=== PATIENT | male | born 1995 | race Hispanic/Latino ===

== ENCOUNTER 2022-06-22 | Emergency (ER) | payer SELFPAY ==
--- NOTE | ~2022-06-22 | CT_ITS ---
EXAMINATION: CT abdomen pelvis w con DATE: 06/22/2022 01:25 INDICATION: Right upper quadrant abdominal pain. TECHNIQUE: Computed tomography (CT) of the abdomen and pelvis was performed with 100 mL Omnipaque 350 intravenous contrast. Automated exposure control and iterative reconstruction technique were employe d. The dose-length product was 1005.09 mGy-cm. COMPARISON: CT abdomen and pelvis 07/22/16 FINDINGS: The visualized portions of the lung bases are clear without pneumonia or pleural effusion. The heart size is normal. No pericardial effusion. There is diffuse hepatic steatosis. There is a gal lstone in the gallbladder. The spleen, pancreas, adrenal glands, and kidneys are normal. There are no dilated loops of bowel. The appendix is normal. There are no pathologically enlarged lymph nodes. Th ere is no free intraperitoneal fluid. There is an umbilical hernia containing fat. There is mild thor acolumbar spondylosis. IMPRESSION: 1. Cholelithiasis. If there is clinical concern for acute cholecystitis, consider ultrasound. 2. Diffuse hepatic steatosis. Reviewed, dictated and finalized at location A. IMPRESSION: 1. Cholelithiasis. If there is clinical concern for acute cholecystitis, consid er ultrasound. 2. Diffuse hepatic steatosis.
[2022-06-22 00:09] VITALS: BP 142/108; PULSE 83; RESP 20; TEMP 36.1; O2SAT 100
[2022-06-22 00:31] LABS: Basophils Absolute Auto 0.1 K/mm3 (0.0-0.1); Basophils Percent Auto 0.4 % (0.2-1.2); Eosinophils Absolute Auto 0.1 K/mm3 (0-0.3); Eosinophils Percent Auto 0.4 % (0-4.4); Hematocrit 47.2 % (42.0-52.0); Hemoglobin 16.5 g/dL (14.0-18.0); Immature Granulocyte Absolute 0.04 K/mm3 (0.00-0.031); Immature Granulocyte Percent A 0.3 % (0-0.5); Lymphocytes Absolute Auto 4.01 K/mm3 (0.9-3.2); Lymphocytes Percent Auto 29.2 % (18.3-44.2); Mean Corpuscular Hemoglobin 30.8 pg (26-34); Mean Corpuscular Volume 88.2 fl (80-100); Mean Platelet Volume 8.9 fl (7.4-10.4); Monocytes Absolute Auto 0.7 K/mm3 (0.1-0.6); Monocytes Percent Auto 5.3 % (2.6-8.5); Neutrophils Absolute Auto 8.8 K/mm3 (1.3-6.7); Neutrophils Percent Auto 64.4 % (45.5-73.1); Platelet Count Result 290 k/mm3 (150-375); Red Blood Count 5.35 M/mm3 (4.6-6.20); White Blood Count 13.7 K/mm3 (4.5-10.0)
[2022-06-22 00:35] LABS: Alanine Aminotransferase 28 U/L (6-50); Albumin Level 5.2 g/dL (3.5-5.1); Alkaline Phosphatase 85 U/L (38-126); Anion Gap 16 mmol/L (8-16); Aspartate Amino Transferase 26 U/L (17-59); Bilirubin,Total 0.5 mg/dL (0.2-1.3); Blood Urea Nitrogen 10 mg/dL (9-20); Calcium 9.5 mg/dL (8.4-10.2); Carbon Dioxide 25 mmol/L (22-30); Chloride 99 mmol/L (98-107); Estimated CRCL calculation 139 ml/min; Estimated Glomerular Filt Rate > 60; Glucose 137 mg/dL (65-110); Lipase 138 U/L (23-300); Potassium 3.8 mmol/L (3.4-5.0); Sodium 140 mmol/L (137-145)
--- NOTE | 2022-06-22 00:40 | ECG_ITS ---
Measurements Intervals [place] Rate: 71 P: 21 ND: 167 QRS: 5 QRSD: 101 T: 25 QT: 364 QTc: 397 Interpretive Statements SINUS RHYTHM NONSPECIFIC ST ELEVATION IN DIFFUSE LEADS BASELINE ARTIFACT- I, III, AVL, AVF, V3 BORDERLINE ECG NO PREVIOUS ECG AVAILABLE FOR COMPARISON Electronically Signed On 06-22-2022 6:43:15 CDT by Anuel Balderrama D.O.
--- NOTE | 2022-06-22 00:45 | ED.ABDPAIN ---
HPI - Abdominal Pain General Chief Complaint: Abdominal Pain <KAPIL Mcleod Last Filed: 06/22/22 03:07> Stated Complaint: ABD pain <KAPIL Mcleod Last Filed: 06/22/22 03:07> Time Seen by Provider: 06/22/22 00:39 <KAPIL Mcleod Last Filed: 06/22/22 03:07> Source: patient <KAPIL Mcleod Last Filed: 06/22/22 03:07> Mode of arrival: ambulatory <KAPIL Mcleod Last Filed: 06/22/22 03:07> Limitations: no limitations <KAPIL Mcleod Last Filed: 06/22/22 03:07> History of Present Illness HPI narrative: This is a 26-year-old male that presents to the emergency department for right upper quadrant abdominal pain noted since last night. Reports the pain is sharp and burning in nature. He has taken several pfsp-klw-ijrvrjp gas medications with little relief. He had a cheeseburger prior to the pain starting. It is associated with some nausea and vomiting. Denies fever or diarrhea. <KAPIL Mcleod Last Filed: 06/22/22 03:07> Related Data Allergies/Adverse Reactions: Allergies Allergy/AdvReac Type Severity Reaction Status Date / Time No Known Allergies Allergy Verified 06/22/22 00:12 <KAPIL Mcleod Last Filed: 06/22/22 03:07> Review of Systems Review of Systems: CONSTITUTIONAL: Denies fever GASTROINTESTINAL: Report abdominal pain, nausea, vomiting. Denies diarrhea. GENITOURINARY: Denies dysuria or hematuria. <KAPIL Mcleod Last Filed: 06/22/22 03:07> All systems reviewed & are unremarkable except as noted in HPI and below <KAPIL Mcleod Last Filed: 06/22/22 03:07> [facility] Past Medical History Medical History: Medical History (Updated 06/23/22 @ 00:00 by Background Daemon) No active medical problems <KAPIL Mcleod Last Filed: 06/22/22 03:07> Social History Social History: Social History (Updated 06/22/22 @ 00:46 by Cecilia Willoughby PA-C) Alcohol intake: current Substance use: never <Cecilia Willoughby PA-C - Last Filed: 06/22/22 03:07> Exam Narrative: GENERAL: Well-appearing, well-nourished, and in mild acute distress due to pain. HEAD: Normocephalic, atraumatic. EYES: EOMI. CHEST: Clear to auscultation. No respiratory distress. No wheezes rales or rhonchi HEART: Regular rate and rhythm. No murmur heard. Normal peripheral pulses. ABDOMEN: Soft, nondistended, normal active bowel sounds. Tender to palpation in the right upper quadrant, without guarding. No CVA tenderness EXTREMITIES: Normal range of motion. No edema. SKIN: Warm, dry, no rash. NEURO: No focal deficits. Alert and oriented x3. PSYCH: Normal mood and affect <Cecilia Willoughby PA-C - Last Filed: 06/22/22 03:07> Course PART TIME/PA Physician Supervision I discussed this patient with SARMAD Willoughby. I agree with the assessment and plan as documented. <Irving Marquez MD - Last Filed: 06/23/22 03:09> Consultations Consultation #1: Spoke with Dr. Barker about patient and work-up. Patient will be given instructions on a low-fat diet and pain medication as needed. Will be started on oral antibiotic for associated leukocytosis. He is to follow-up in clinic. <Cecilia Willoughby PA-C - Last Filed: 06/22/22 03:07> Date: 06/22/22 <Cecilia Willoughby PA-C - Last Filed: 06/22/22 03:07> Time: 03:07 <Cecilia Willoughby PA-C - Last Filed: 06/22/22 03:07> Vital Signs Vital signs: Vital Signs Temperature 97 F L 06/22/22 00:09 Pulse Rate 83 06/22/22 00:09 Respiratory Rate 20 06/22/22 00:09 Blood Pressure 142/108 H 06/22/22 00:09 Pulse Oximetry 100 06/22/22 00:09 Oxygen Delivery Room Air 06/22/22 00:09 Temperature 97 F L 06/22/22 00:09 Pulse Rate 58 L 06/22/22 03:17 Respiratory Rate 19 06/22/22 03:17 Blood Pressure 142/88 H 06/22/22 03:17 Pulse Oximetry 98 06/22/22 03:17 Oxygen Delivery Room Air 06/22/22 00:09 <Cecilia Willoughby PA-C - [place]
[2022-06-22 00:48] LABS: Appearance Urine Clear (Clear); Bilirubin Urine Negative (Negative); Blood Urine Negative (Negative); Glucose Urine UA Negative (Negative); Ketones Urine Negative (Negative); Leukocyte Esterase Ur Negative LEU/UL (Negative); Nitrate Urine Negative (Negative); Protein Urine Negative (Negative); Specific Grav Ur 1.025 (1.001-1.035); Urobilinogen Urine 0.2 mg/dL (<2.0); pH Urine 6.5 (5.0-9.0)
[2022-06-22 00:54] LABS: Add Urine Microscopic? NO; Color Urine Light Yellow (Yellow)
[2022-06-22] MEDS: PANTOPRAZOLE SODIUM IV 40 MG VIAL IV PUSH (00:55)
[2022-06-22] MEDS: MORPHINE SULFATE (*CRX) 4 MG/ML INJ IV PUSH (00:56)
[2022-06-22] MEDS: ONDANSETRON INJ 4 MG/2 ML VIAL IV PUSH (00:56)
[2022-06-22 01:55] VITALS: BP 164/109; PULSE 68; RESP 22; O2SAT 97
[2022-06-22 02:02] VITALS: BP 150/99; PULSE 63; RESP 23; O2SAT 97
[2022-06-22] MEDS: KETOROLAC 30 MG/ML VIAL (*BKC) IV PUSH (02:14)
[2022-06-22 03:17] VITALS: BP 142/88; PULSE 58; RESP 19; O2SAT 98
== END 2022-06-22 03:24 | disposition home or self-care (01) ==
PROVIDERS: Physician Assistant; Emergency Provider Preventive Medicine Aerospace Medicine
DX: K80.20 Calculus of gallbladder without cholecystitis without obstruction (principal); K76.0 Fatty (change of) liver, not elsewhere classified; R94.31 Abnormal electrocardiogram [ECG] [EKG]
CPT/HCPCS: 36415; 74177; 80053; 81003; 83690; 85025; 93005; 96365; 96375; 99284; C9113; J0131; J1885; J2270; J2405; Q9967

== ENCOUNTER 2023-10-04 13:39 | Emergency (ER) | payer SELFPAY ==
--- NOTE | ~2023-10-04 | XR_ITS ---
EXAMINATION: XR chest 1V portable INDICATION: Back pain TECHNIQUE: Portable AP chest at 1416 hours COMPARISON: None available FINDINGS: There are minimal central interstitial and airspace opacities of the lungs. No pleural effu tomas or pneumothorax. The cardiomediastinal silhouette is normal. IMPRESSION: 1. Mild central interstitial and airspace opacities of the lungs which could reflect pneumonia and/or pulmonary edema. Reviewed, dictated and finalized at location B. RVISOR BURLING AND JOINING IMPRESSION: 1. Mild central interstitial and airspace opacities of the lungs which could re flect pneumonia and/or pulmonary edema.
[2023-10-04 13:50] VITALS: BP 140/66; PULSE 69; RESP 16; TEMP 36.4; O2SAT 99
--- NOTE | 2023-10-04 14:06 | ED.GENADULT ---
HPI - General Adult General Chief complaint: Unspecified Stated complaint: upper back issue Time Seen by Provider: 10/04/23 13:51 History of Present Illness HPI narrative: 28-year-old male present to the emergency department for evaluation of right scapular pain. Patient states he works as a cook and has been having increased pain of his right shoulder while working. Patient states he began having the pain on Monday and has been taking wulg-tdj-dyobdoi pain medications without significant improvement. Patient has taken Tylenol Advil and icy Hot but still has worsening symptoms. Patient denies any specific incident of injury other than possible overuse injury. Patient denies any falls patient denies any fevers. Related Data Allergies Allergy/AdvReac Type Severity Reaction Status Date / Time No Known Allergies Allergy Verified 06/28/22 11:31 Review of Systems Review of Systems: All systems reviewed & are unremarkable except as noted in HPI and below PMFSH Past Medical History Medical History No active medical problems Social History Social History (Updated 06/28/22 @ 11:35 by Zoe Steinre) Smoking status: Former smoker Alcohol intake: current Substance use: never Exam Narrative: APPEARANCE: Well appearing, no pain, no distress, well-nourished. HEAD: normocephalic, atraumatic. EYES: PERRLA/EOMI, conjunctivae clear. NOSE: Normal no drainage EARS:TMS clear with good light reflex. THROAT: Pharynx clear, no exudate. NECK: Supple. No adenopathy, no masses. RESPIRATORY: Airway patent, respirations nonlabored. Clear to auscultation bilaterally, no rales, rhonchi, wheezing. CARDIOVASCULAR: Regular rate and rhythm without murmurs rubs or gallops. ABDOMINAL: Soft, nontender, nondistended, normal bowel sounds MUSCULOSKELETAL: Reproducible posterior periscapular muscular tenderness to palpation. No midline tenderness to palpation NEURO: Alert. Cranial nerves II through XII intact. Grossly intact SKIN: Warm, dry. Normal Color Course Course Emergency Course: 28-year-old male presenting to ED for evaluation right muscular back pain. Chest x-ray shows no acute fracture dislocation. Patient did feel improved with treatment. Patient was advised to continue taking the Aleve as scheduled and patient was provided Flexeril and a short course of Epes for additional pain control. Patient was advised to limit repetitive use of the right shoulder and to have close follow-up with his primary care physician. Vital Signs Vital signs: Vital Signs Temperature 97.5 F L 10/04/23 13:50 Pulse Rate 69 10/04/23 13:50 Respiratory Rate 16 10/04/23 13:50 Blood Pressure 140/66 10/04/23 13:50 Pulse Oximetry 99 10/04/23 13:50 Oxygen Delivery Room Air 10/04/23 13:50 Temperature 97.8 F 10/04/23 14:49 Pulse Rate 76 10/04/23 14:49 Respiratory Rate 16 10/04/23 14:49 Blood Pressure 130/70 10/04/23 14:49 Pulse Oximetry 100 10/04/23 14:49 Oxygen Delivery Room Air 10/04/23 13:50 Medical Decision Making Differential Diagnosis Differential Diagnosis: Shoulder injury, muscular strain, pneumonia, rib fracture, pneumothorax Vital Signs Vital Signs: Vital Signs Temperature 97.5 F L 10/04/23 13:50 Pulse Rate 69 10/04/23 13:50 Respiratory Rate 16 10/04/23 13:50 Blood Pressure 140/66 10/04/23 13:50 Pulse Oximetry 99 10/04/23 13:50 Oxygen Delivery Room Air 10/04/23 13:50 Temperature 97.8 F 10/04/23 14:49 Pulse Rate 76 10/04/23 14:49 Respiratory Rate 16 10/04/23 14:49 Blood Pressure 130/70 10/04/23 14:49 Pulse Oximetry 100 10/04/23 14:49 Oxygen Delivery Room Air 10/04/23 13:50 Discharge Plan Discharge Clinical Impression: Back pain without radiation Patient Disposition: Home, Self-Care Condition: Stable Instructions: Antibiotic Form, Back Pain (ED) Additional Instructions
[2023-10-04] MEDS: HYDROcodone/acetaminophen (*CRX) 5-325 MG TABLET 1 TAB PO (14:19)
[2023-10-04] MEDS: CYCLOBENZAPRINE HCL 10 MG TABLET PO (14:20)
[2023-10-04] MEDS: KETOROLAC 30 MG/ML VIAL (*BKC) IM (14:20)
[2023-10-04 14:49] VITALS: BP 130/70; PULSE 76; RESP 16; TEMP 36.6; O2SAT 100
== END 2023-10-04 14:55 | disposition home or self-care (01) ==
PROVIDERS: Emergency Provider Emergency Medicine
DX: M25.511 Pain in right shoulder (principal); Z87.891 Personal history of nicotine dependence; R91.8 Other nonspecific abnormal finding of lung field
CPT/HCPCS: 71045; 96372; 99283; A9270; J1885

== ENCOUNTER 2023-10-18 21:25 | Observation (INO) | payer SELFPAY ==
--- NOTE | ~2023-10-18 | XR_ITS ---
EXAMINATION: XR chest 2V DATE: 10/18/2023 22:13 INDICATION: Chest pain. TECHNIQUE: Frontal and lateral views of the chest were obtained. COMPARISON: CT abdomen and pelvis 06/22/2022, chest single view 10/04/2023 FINDINGS: There is no pneumonia, pleural effusion, or pneumothorax. The heart size is normal. IMPRESSION: 1. No acute cardiopulmonary disease. Reviewed, dictated and finalized at location E. TINNER
--- NOTE | ~2023-10-18 | CT_ITS ---
CT of the Abdomen and Pelvis: Indication: Abdominal pain Technique: 2.5 mm axial scans were obtained through the abdomen and pelvis following intravenous adm inistration of 100 cc of Omnipaque 350. Dose reduction technique was used on this scan by utilizing a utomated exposure control and iterative reconstruction technique. The dose-length product (DLP) was 1 404.10 mGy-cm. COMPARISON: 06/22/2022 Findings: Scans through the lung bases are unremarkable. The liver, spleen, pancreas, gallbladder, adrenals and kidneys are within normal limits. No evidence of aortic aneurysm. No lymphadenopathy. No bowel obstruction or bowel wall thickening. There is no evidence to suggest acute appendicitis. Images through the pelvis were performed. Urinary bladder unremarkable. Prostate gland and seminal ve sicles are unremarkable. No ascites. Impression: No significant abnormalities seen. Reviewed, dictated and finalized at [facility]. INE BOOKKEEPER Impression: No significant abnormalities seen.
--- NOTE | ~2023-10-18 | NM_ITS ---
EXAMINATION: NM hepatobiliary w pharm DATE: 10/19/2023 12:44 INDICATION: Intractable right upper quadrant abdominal pain COMPARISON: CT dated 10/18/2023 TECHNIQUE: 5.3 mCi Tc-99m mebrofenin (Choletec) was administered intravenously. Scintigraphic images of the abdomen were obtained for one hour. 2 mg morphine was administered by slow intravenous infusi on, and imaging was continued for 30 minutes. FINDINGS: There is normal clearance of radiotracer from the blood pool. There is homogeneous tracer uptake by t he liver. Activity progresses to the common bile duct to the small bowel with initial duodenal activ ity evident at 35 minutes. There is progressive accumulation of activity in the bowels throughout the remainder of the study. Following morphine administration there is some accumulation of activity mandi ng the common bile duct and at the sunita hepatis. There is however no evident gallbladder activity. IMPRESSION: 1. No evident accumulation of gallbladder activity either during the initial hour of imaging or in t he calf or following morphine administration. This would be consistent with cystic duct obstruction a nd acute cholecystitis. Reviewed, dictated and finalized at location A. CTOR OF FOOD AND NUTRITION IMPRESSION: 1. No evident accumulation of gallbladder activity either during the initial h our of imaging or in the calf or following morphine administration. This would be consistent with cystic duct obstruction and acute cholecystitis.
--- NOTE | ~2023-10-18 | US_ITS ---
EXAMINATION: US abdomen limited DATE: 10/19/2023 11:08 INDICATION: Right upper quadrant abdominal pain TECHNIQUE: Multiple grayscale and Doppler ultrasound images of the abdomen were obtained. COMPARISON: CT dated 10/18/2023 FINDINGS: The visualized proximal to mid inferior vena cava is normal. The pancreatic head and body are normal in appearance. The pancreatic tail is not visualized. Liver has normal echogenicity and contour, wit h a smooth surface. No liver lesion identified. No intrahepatic biliary duct dilation suspected. Port al venous flow was seen in the hepatopetal, normal direction and has normal Doppler waveform. The gal lbladder is normal in appearance. There is no cholelithiasis. The common bile duct measures 3 mm, wh ich is normal. Sonographic Hodgson sign was reported as negative by the machinist wood.Visualized portion of the right kidney demonstrates normal contour and echogenicity with no hydronephrosis. IMPRESSION: 1. Normal right upper quadrant ultrasound. Reviewed, dictated and finalized at location A. DIGITAL AD SALES
[2023-10-18 21:27] VITALS: BP 156/112; PULSE 71; RESP 20; TEMP 35.7; O2SAT 100
--- NOTE | 2023-10-18 21:38 | ECG_ITS ---
Measurements Intervals [place] Rate: 60 P: 34 ID: 146 QRS: 7 QRSD: 102 T: 27 QT: 370 QTc: 371 Interpretive Statements SINUS RHYTHM LOW QRS VOLTAGE IN PRECORDIAL LEADS BASELINE ARTIFACT- I, II, III, AVR, AVL BORDERLINE ECG COMPARED TO ECG 06/22/2022 00:54:38 NO SIGNIFICANT CHANGES Electronically Signed On 10-19-2023 6:49:06 SYSTEMS INTEGRATOR by Anuel Balderrama D.O.
[2023-10-18 21:55] LABS: Basophils Absolute Auto 0.1 K/mm3 (0.0-0.1); Basophils Percent Auto 0.8 % (0.2-1.2); Eosinophils Absolute Auto 0.1 K/mm3 (0-0.3); Eosinophils Percent Auto 1.4 % (0-4.4); Hematocrit 47.9 % (42.0-52.0); Hemoglobin 16.1 g/dL (14.0-18.0); Immature Granulocyte Absolute 0.04 K/mm3 (0.00-0.031); Immature Granulocyte Percent A 0.4 % (0-0.5); Lymphocytes Absolute Auto 3.01 K/mm3 (0.9-3.2); Lymphocytes Percent Auto 29.2 % (18.3-44.2); Mean Corpuscular HGB Conc 33.6 g/dl (32-36); Mean Corpuscular Hemoglobin 30.3 pg (26-34); Mean Corpuscular Volume 90.2 fl (80-100); Mean Platelet Volume 9.5 fl (7.4-10.4); Monocytes Absolute Auto 0.7 K/mm3 (0.1-0.6); Monocytes Percent Auto 7.2 % (2.6-8.5); Neutrophils Absolute Auto 6.3 K/mm3 (1.3-6.7); Platelet Count Result 264 k/mm3 (150-375); Red Blood Count 5.31 M/mm3 (4.6-6.20); White Blood Count 10.3 K/mm3 (4.5-10.0)
[2023-10-18 22:06] LABS: Alanine Aminotransferase 28 U/L (6-50); Albumin Level 4.6 g/dL (3.5-5.1); Alkaline Phosphatase 63 U/L (38-126); Anion Gap 12 mmol/L (8-16); Aspartate Amino Transferase 30 U/L (17-59); Bilirubin,Total 0.6 mg/dL (0.2-1.3); Blood Urea Nitrogen 14 mg/dL (9-20); Carbon Dioxide 26 mmol/L (22-30); Chloride 101 mmol/L (98-107); Estimated CRCL calculation 117 ml/min; Estimated Glomerular Filt Rate > 60; Glucose 99 mg/dL (65-110); Lipase 190 U/L (23-300); Potassium 4.1 mmol/L (3.4-5.0); Sodium 139 mmol/L (137-145)
[2023-10-18 22:07] LABS: INR 0.9; Prothrombin Time 12.8 Seconds (11.1-14.7)
[2023-10-18 22:08] VITALS: O2SAT 100
[2023-10-18 22:08] LABS: Partial Thromboplastin Time 29.3 SECONDS (22.3-36.8)
[2023-10-18 22:17] LABS: Troponin I < 0.012 ng/mL (0.000-0.034)
[2023-10-18] MEDS: MAG HYDROX/AL HYDROX/SIMETH 30 ML UDC PO (23:16)
[2023-10-18] MEDS: FAMOTIDINE 20 MG/2 ML VIAL IV PUSH (23:16)
[2023-10-18 23:19] VITALS: PULSE 72; O2SAT 99
[2023-10-18 23:30] VITALS: PULSE 67; O2SAT 100
--- NOTE | 2023-10-18 23:39 | ED.ABDPAIN ---
HPI - Abdominal Pain General Chief Complaint: Abdominal Pain Stated Complaint: abdominal pain Time Seen by Provider: 10/18/23 22:41 Source: patient Limitations: no limitations History of Present Illness HPI narrative: Patient is a 28-year-old male presents to the emergency department complaining of abdominal pain. Patient states the pain is in his right upper quadrant, feels like a tightness and a pressure-like sensation, started approximately 3 hours ago and has been constant since onset, feels similar to his history of pain like this in the past in which she had gallbladder disease in his will see his gallbladder all passing on an hourly however they usually was common and going and it does not usually constant like this, missed the pain radiate around to the right side of his back, he tried an oxycodone for the pain with only minimal relief. Patient admits to associated in his pain with fatty foods in the past. Patient denies melena, hematochezia, diarrhea, chest pain, shortness of breath, cough, fever, recent injuries, recent illness, dysuria, hematuria, urinary frequency, urinary urgency, history kidney stones, rash, numbness, weakness, sore throat, nasal congestion. Patient admits to some slight nausea and had 1 episode of nonbloody nonbilious emesis. Related Data Allergies Allergy/AdvReac Type Severity Reaction Status Date / Time No Known Allergies Allergy Verified 10/18/23 21:33 Review of Systems Review of Systems: A 10 system review of systems was completed on the patient and is negative except for what is stated in the HPI. Nursing and ancillary documentation was reviewed. [facility] Past Medical History Medical History No active medical problems Social History Social History (Updated 06/28/22 @ 11:35 by Zoe Steiner) Smoking status: Former smoker Alcohol intake: current Substance use: never Comments At time of signature, I have reviewed and agree with nursing past medical, surgical, social and family history unless otherwise noted. Please see the nursing chart for further information. There is no relevant family history pertinent to the presenting complaint. Exam Narrative: CONST: No acute distress. Well nourished. HENMT: Head is normocephalic and atraumatic. Moist mucous membranes. No posterior oropharynx erythema. EYES: No conjunctival icterus, injection, or pallor. PERRL. NECK: No meningeal signs. RESP: Able to speak in full sentences. Normal respiratory effort. CTAB. CARDIO: Regular rate. Regular rhythm. 2+ DP and radial pulses bilaterally. GI: Nondistended. Soft. mild tenderness palpation in the right upper quadrant. No rebound or guarding or rigidity. Positive Hodgson sign. No McBurney's point tenderness to palpation. No palpable masses or hernias. : No CVA tenderness to palpation. SKIN: No rashes or lesions noted on exposed skin. NEURO: Oriented x3. Moves all extremities. EXTREM/MSK/BACK: No pedal edema. PSYCH: Normal affect. Course Vital Signs Vital signs: Vital Signs Temperature 96.3 F L 10/18/23 21:27 Pulse Rate 71 10/18/23 21:27 Respiratory Rate 20 10/18/23 21:27 Blood Pressure 156/112 H 10/18/23 21:27 Pulse Oximetry 100 10/18/23 21:27 Oxygen Delivery Room Air 10/18/23 21:27 Temperature 96.3 F L 10/18/23 21:27 Pulse Rate 80 10/19/23 02:19 Respiratory Rate 17 10/19/23 02:19 Blood Pressure 158/111 H 10/19/23 02:19 Pulse Oximetry 99 10/19/23 02:19 Oxygen Delivery Room Air 10/18/23 22:08 MDM - Abdominal Pain MDM Narrative Medical decision making narrative: Patient presents with the above complaint. Initial vitals are remarkable for no significant abnormalities. Physical examination as noted above. Plan discussed: Laboratory analysis, chest x-ray, EKG, CT of the abdomen pelvis with contrast, 1 L bolus IV fluids normal saline for hydration, NPO, famotidine 20 m
[2023-10-18 23:45] VITALS: PULSE 69; RESP 14; O2SAT 100
[2023-10-19] VITALS (33 sets, daily range): BP systolic 132–178; BP diastolic 85–114; PULSE 63–92; RESP 13–20; TEMP 36.6–37.6; O2SAT 96–100; BMI 35.5
[2023-10-19] MEDS: SODIUM CHLORIDE 0.9% IV 1,000 ML 999 ML IV CONT (00:06)
[2023-10-19] MEDS: MORPHINE SULFATE (*CRX) 4 MG/ML INJ IV PUSH ×2 (00:12→05:19)
[2023-10-19] MEDS: ONDANSETRON INJ 4 MG/2 ML VIAL IV PUSH ×2 (00:15→09:51)
[2023-10-19] MEDS: MORPHINE SULFATE (*CRX) 4 MG/ML INJ 8 MG IV PUSH (02:14)
--- NOTE | 2023-10-19 06:01 | ADMGEN ---
This patient, Adrián Martin, was admitted to Medical Room 261-01. Patient/family oriented to hospital policies and general routines including ID bracelet, bed and alarms, visiting hours, pain management, procedures, bathroom and other care routines, personal items, smoking policy, room service/diet, and visiting hours. Information on how to activate the Rapid Response Team has been discussed. Patient/Family are encouraged to report perceived risks to care and to ask questions if they do not understand what they are told or what they should do.
[2023-10-19] MEDS: SODIUM CHLORIDE 0.9% IV 1,000 ML 125 ML IV CONT (06:25)
--- NOTE | 2023-10-19 09:41 | PM.CNGS ---
Assessment and Plan Assessment and plan (1) Abdominal pain, right upper quadrant: Code(s): R10.11 - Right upper quadrant pain Status: Acute Assessment and Plan: Patient presented with intractable RUQ abdominal pain. CT of the abdomen and pelvis showed a normal appearing gallbladder and labs were unremarkable. In review of his chart, he did have CT evidence of cholelithiasis in 2021. His exam, persistent RUQ pain, and presentation are suspicious for gallbladder disease. Agree with the RUQ US and HIDA scan to further evaluate. I discussed treatment options with the patient if his pain is related to his gallbladder. He has already tried dietary modifications for the past year and continues to have intermittent pain, therefore he would prefer to proceed with surgery. If there is evidence of acute calculous cholecystitis, then we could consider proceeding with a laparoscopic cholecystectomy under general anesthesia. We did go over the description of the procedure, risks, benefits, expected outcomes, and expected recovery in case he has surgery during this admission. We discussed the risks of a bile leak and bile duct injury, liver/bowel injury, bleeding, and infection. Also discussed the possibility of having to convert to an open procedure if necessary. All questions were answered and will await test results. He will remain NPO for his tests today. I have added additional options for pain control while they are holding narcotics for the HIDA scan. (2) Steatosis, liver: Code(s): K76.0 - Fatty (change of) liver, not elsewhere classified Status: Acute Assessment and Plan: Noted on imaging. Recommend lifestyle modifications and low fat diet. (3) Obesity (BMI 30-39.9): Code(s): E66.9 - Obesity, unspecified Status: Acute (4) Marijuana smoker: Code(s): F12.90 - Cannabis use, unspecified, uncomplicated Status: Acute Assessment and Plan: Encouraged cessation. Plan I have discussed the patient's case and plan of care with Dr. Staples. Thank you for allowing us to see the patient in consultation and we will continue to follow along with you. History of Present Illness Consult details Consult date: 10/19/23 Reason for consult: other (Intractable RUQ abdominal pain) Requesting physician: Wood Platt DO Narrative: This is a 28-year-old man who presented to the ER with complaints of RUQ abdominal pain. He reports having minor episodes of similar pain in the past with one episode prompting and ER visit in 2021. He was seen in the ER with a CT scan of the abdomen and pelvis that showed cholelithiasis and he was discharged home with improvement of his symptoms. He followed up with Dr. Barker in our office a week after the ER visit and decided to hold off on surgery until he got insurance. Since then, he has followed a fairly strict low fat diet. He has had a few mild episodes of RUQ abdominal pain that subside and seem to follow meals. Yesterday, he had a deli meat wrap with mayonnaise and a Frappuccino around 3:00 pm. He then developed RUQ and epigastric abdominal pain around 6:00 pm that was more severe than previous episodes of pain. His pain radiated around his right side to his right mid back and progressively worsened. He developed nausea and vomiting. He eventually presented to the ER last night for evaluation. Workup in the ER showed normal LFTs, normal lipase, and essentially normal WBC count. CT scan of the abdomen and pelvis showed no acute intraabdominal abnormality with a normal appearing gallbladder. Chest x-ray negative. Troponin negative. He was given aspirin 324 mg, Mylanta, and morphine in the ER but continued to have intractable abdominal pain and was admitted for further workup. RUQ abdominal ultrasound and HIDA scan have been ordered. Our service was consulted for surgical evaluation of RUQ abdominal pain. He is now seen on the medical floor. He has been receiving IV morphine nearly jaquelin
[2023-10-19] MEDS: KETOROLAC 30 MG/ML VIAL (*BKC) IV PUSH (09:52)
--- NOTE | 2023-10-19 10:55 | PM.IMHP ---
H&P: HPI History of Present Illness Date/Time: 10/19/23 10:55 Chief Complaint: right upper quadrant pain Narrative: This is a 28-year-old male with a insignificant past medical history that presented to the ED on 10/18/23 due to acute abdominal pain. Patient's pain was in the right upper quadrant and radiated to his back. Patient states that he had been seeing the hospital in 2021 and was told he had gallstones but did not undergo surgery at that time. This feels like similar pain to him. He had a subjective fever and nausea but no vomiting. Patient is a daily drinker of at least 4 beers a day as well as a daily vape and marijuana user. He also consumes caffeine daily. He is found have a white blood cell count of 10.3, LFTs within normal range and normal lipase. CT of the abdomen pelvis was unremarkable. According to the ED no patient had a bedside point of care ultrasound which physician interpreted as gallbladder sludge. He was admitted for further workup with a right upper quadrant ultrasound as well as a HIDA scan. General surgery consulted for their opinion. [facility] Past Medical History Medical History No active medical problems Surgical History Surgical History No pertinent past surgical history Family History Family History Mother Hypertension Diabetes mellitus Social History Social History Smoking status: Former smoker Alcohol intake: current Drinks per week: 20 Substance use: never Substance use type: marijuana Do You Feel Safe in your Home?: Yes Lack of Transportation: No Lack of Food: Never True Current Housing: I Have Housing Concerned About Future Housing: No Difficulty Paying Gas/Electric Bills: No Difficulty Paying for Meds: No Currently Unemployed: No Education: Don't Know Difficulty w/ Childcare or Family Care: No Spiritual care concerns: No Meds Home Medications and Allergies Home Medications Medication Instructions Recorded Confirmed Type cyclobenzaprine 10 mg tablet 10 mg PO BID PRN muscle spasm #14 10/04/23 10/19/23 Rx tabs hydrocodone 5 mg-acetaminophen 325 1 tablet PO Q12H PRN pain #10 tabs 10/04/23 10/19/23 Rx mg tablet Allergies Allergy/AdvReac Type Severity Reaction Status Date / Time No Known Allergies Allergy Verified 10/18/23 21:33 Vital Signs Vital Signs - 24 hr 10/18/23 21:27 10/18/23 22:08 10/18/23 23:19 Temperature 96.3 F L Pulse Rate 71 72 Respiratory Rate 20 Blood Pressure 156/112 H Pulse Oximetry 100 100 99 Oxygen Delivery Room Air Room Air 10/18/23 23:30 10/18/23 23:45 10/19/23 00:04 Temperature Pulse Rate 67 69 74 Respiratory Rate 14 18 Blood Pressure Pulse Oximetry 100 100 100 Oxygen Delivery 10/19/23 00:15 10/19/23 00:30 10/19/23 00:45 Temperature Pulse Rate 72 75 69 Respiratory Rate 17 Blood Pressure Pulse Oximetry 100 98 100 Oxygen Delivery 10/19/23 01:00 10/19/23 01:15 10/19/23 01:30 Temperature Pulse Rate 71 66 71 Respiratory Rate 19 13 Blood Pressure Pulse Oximetry 100 100 Oxygen Delivery 10/19/23 01:45 10/19/23 02:00 10/19/23 02:15 Temperature Pulse Rate 68 69 68 Respiratory Rate 16 16 Blood Pressure Pulse Oximetry 100 100 100 Oxygen Delivery 10/19/23 02:19 10/19/23 02:20 10/19/23 02:30 Temperature Pulse Rate 80 78 74 Respiratory Rate 17 13 Blood Pressure 158/111 H Pulse Oximetry 99 100 99 Oxygen Delivery 10/19/23 02:31 10/19/23 03:34 10/19/23 03:45 Temperature Pulse Rate 77 Respiratory Rate 20 Blood Pressure Pulse Oximetry 100 99 97 Oxygen Delivery 10/19/23 04:04 10/19/23 05:09 10/19/23 05:32 Temperature Pulse Rate 63 73 67 Respiratory R
[2023-10-19] MEDS: MORPHINE SULFATE (*CRX) 2 MG/ML INJ IV PUSH (12:15)
[2023-10-19] MEDS: LACTATED RINGERS 1,000 ML 30 ML IV CONT ×2 (14:30→16:33)
--- NOTE | 2023-10-19 15:01 | WPDHPUPDATE1 ---
History and Physical Update Update Date/Time: 10/19/23 15:01 History and Physical has been reviewed, including an updated exam of the patient. There are NO changes in the patient's condition. Risks, benefits, and alternatives have been discussed and questions answered. Patient agrees to proceed with procedure.
--- NOTE | 2023-10-19 15:17 | WPDANESEPPF ---
Anes - Initial Pre Proc Eval Procedure: Operation Date: 10/19/23 15:00 Proposed Procedures p Laparoscopic Cholecystectomy, Possible Open - Reji Staples DO Date/Time: 10/19/23 15:17 Surgeon: Loki Mccray MD Pre Op Diagnosis: Intractable RUQ Abdominal Pain Patient Data Age: 28 Gender: M Height: 1.68 m Weight: 99.79 kg Last Vital Signs Temp 37.2 C 10/19/23 14:44 Pulse 69 10/19/23 14:44 Resp 16 10/19/23 14:44 BP 151/98 H 10/19/23 14:44 Pulse Ox 99 10/19/23 14:44 O2 Del Method Room Air 10/19/23 14:44 Allergies Allergy/AdvReac Type Severity Reaction Status Date / Time No Known Allergies Allergy Verified 10/18/23 21:33 Home Medications Medication Instructions Recorded Confirmed Type cyclobenzaprine 10 mg tablet 10 mg PO BID PRN muscle spasm #14 10/04/23 10/19/23 Rx tabs hydrocodone 5 mg-acetaminophen 325 1 tablet PO Q12H PRN pain #10 tabs 10/04/23 10/19/23 Rx mg tablet Laboratory Tests 10/18/23 21:49 WBC 10.3 H K/mm3 (4.5-10.0) RBC 5.31 M/mm3 (4.6-6.20) Hgb 16.1 g/dL (14.0-18.0) Hct 47.9 % (42.0-52.0) MCV 90.2 fl (80-100) MCH 30.3 pg (26-34) MCHC 33.6 g/dl (32-36) RDW 13.0 % (11.5-14.5) Plt Count 264 k/mm3 (150-375) MPV 9.5 fl (7.4-10.4) Immature Gran % (Auto) 0.4 % (0-0.5) Neut % (Auto) 61.0 % (45.5-73.1) Lymph % (Auto) 29.2 % (18.3-44.2) [place] % (Auto) 7.2 % (2.6-8.5) Eos % (Auto) 1.4 % (0-4.4) Baso % (Auto) 0.8 % (0.2-1.2) Lymph # (Auto) 3.01 K/mm3 (0.9-3.2) [place] # (Auto) 0.7 H K/mm3 (0.1-0.6) Eos # (Auto) 0.1 K/mm3 (0-0.3) Baso # (Auto) 0.1 K/mm3 (0.0-0.1) Abs Immat Gran (auto) 0.04 H K/mm3 (0.00-0.031) Absolute Neuts (auto) 6.3 K/mm3 (1.3-6.7) Absolute Nucleated RBC 0.0 K/mm3 (0.0-0.012) Nucleated RBC % 0.0 % (0.0-0.2) PT 12.8 Seconds (11.1-14.7) INR 0.9 APTT 29.3 SECONDS (22.3-36.8) Sodium 139 mmol/L (137-145) Potassium 4.1 mmol/L (3.4-5.0) Chloride 101 mmol/L (98-107) Carbon Dioxide 26 mmol/L (22-30) Anion Gap 12 mmol/L (8-16) BUN 14 mg/dL (9-20) Creatinine 0.90 mg/dL (0.7-1.3) Estim Creat Clear Calc 117 ml/min Estimated GFR > 60 (59 - ) Glucose 99 mg/dL (65-110) Calcium 10.0 mg/dL (8.4-10.2) Total Bilirubin 0.6 mg/dL (0.2-1.3) AST 30 U/L (17-59) ALT 28 U/L (6-50) Alkaline Phosphatase 63 U/L (38-126) Troponin I < 0.012 ng/mL (0.000-0.034) Total Protein 8.0 g/dL (6.3-8.2) Albumin 4.6 g/dL (3.5-5.1) Lipase 190 U/L (23-300) Patient hx anesthesia problems: none Family hx anesthesia problems: none Results Review: All pre-operative results and documents have been reviewed as part of the pre-operative evaluation. [facility] Past Medical History Medical History (Updated 10/19/23 @ 15:18 by Adria Thomas MD) CCC (chronic calculous cholecystitis) Marijuana smoker Obesity (BMI 30-39.9) Surgical History Surgical History No pertinent past surgical history Family History Family History Mother Hypertension Diabetes mellitus Social History Social History Smoking status: Former smoker Alcohol intake: current Drinks per week: 20 Substance use: never Substance use type: marijuana Do You Feel Safe in your Home?: Yes Lack of Transportation: No Lack of Food: Never True Current Housing: I Have Housing Concerned About Future Housing: No Difficulty Paying Gas/Electric Bills: No Difficulty Paying for Meds: No Currently Unemployed: No Education: Don't Know Difficulty w/ Childcare or Family Care: No Spiritual care concerns: No Anes - Eval Final PreProcedure Day of Procedure
[2023-10-19] MEDS: ceFAZolin 2 GM/D5W 50 ML 2 GM/50 ML BAG IVPB (15:42)
--- NOTE | 2023-10-19 16:36 | W.PM.PROC2 ---
Procedure Note - Detailed Date of Procedure 10/19/23 Pre-op Diagnosis Acute cholecystitis Post-op Diagnosis Same (Acute calculous cholecystitis) Procedure Performed Laparoscopic Cholecystectomy Surgeon Reji Staples, DO Anesthesia General and Local (0.5% bupivacaine) Indications This is a 28-year-old man who presented to the emergency department last night with right upper quadrant pain that had been constant for several hours. He has had an episode like this a couple years ago and gallstones were identified at that time. He elected not to have surgery at that time. In the emergency department he was noted to have tenderness in the right upper quadrant and a slightly elevated white blood count at 10.3. CT abdomen and pelvis was normal. He was admitted for further workup and treatment. An ultrasound was normal as well but HIDA scan showed evidence of occluded cystic duct consistent with acute cholecystitis. Discussions were made with the patient about treatment options and decision was made to proceed with laparoscopic cholecystectomy, possible open. Findings Laparoscopic cholecystectomy was performed. The patient had evidence of acute cholecystitis with induration of the gallbladder wall and hyperemia. The cystic duct appeared normal in size. There was about a 1 cm gallstone at the neck of the gallbladder. The gallbladder was tense and distended and was aspirated with a laparoscopic aspirating needle. About 80 mL of cloudy bilious fluid was aspirated. The gallbladder was then removed and sent to the lab for pathology. Description of Procedure Procedure as well as risks, benefits, and alternatives were discussed with patient. Written consent was obtained and placed in chart prior to procedure. The patient was brought back to surgical suite. Patient was placed in supine position on operating table. Time-out was done to confirm patient and procedure. Patient was then intubated by the anesthesia department. Abdomen was prepped and draped in sterile fashion using chlorhexidine prep. 0.5% bupivacaine with epinephrine was infiltrated at each site of incision. A 5 millimeter incision was made near the umbilicus, and a 5 millimeter Optiview trocar was advanced through the abdominal layers under direct visualization. Once inside the abdominal cavity, carbon dioxide was insufflated to create a pneumoperitoneum. The camera was inserted and the abdomen was inspected. No immediate abnormalities were identified. The patient was placed in reverse Trendelenburg position and rotated slightly to the left. An 11 millimeter incision was made in the subxiphoid region, and an 11 millimeter trocar was inserted under direct visualization. Two 5 millimeter incisions were made in the right upper quadrant, and two 5 millimeter trocars were inserted under direct visualization. The gallbladder was identified and grasped at the fundus and retracted superiorly. It was then grasped at the infundibulum retracted laterally. Careful dissection around the neck of the gallbladder was performed using blunt dissection with a [place] grasper and hook electrocautery. The cystic duct was identified, and a window was created behind it. The cystic artery was also identified and a window was created behind it. The critical view of safety was identified, visualizing the cystic duct running directly into the neck of the gallbladder, and the cystic artery running directly into the wall of the gallbladder. A 5 millimeter clip front desk team member was then used to place 2 clips proximally and 1 clip distally on both the cystic duct and cystic artery. They were then both transected using endoscopic scissors. Once safely away from the sunita hepatitis, the gallbladder was dissected free from the liver bed using hook electrocautery. Hemostasis was achieved along the way. The gallbladder was removed completely and then removed through the subxiphoid port. The liver bed was then inspected. Hemostasis appe
[2023-10-19] MEDS: BUPIVACAINE/EPINEPHRINE 0.5% 50 ML VIAL 30 ML INFILTRATE (16:37)
[2023-10-19] MEDS: fentaNYL CITRATE INJ (*CRX) 100 MCG/2 ML VIAL IV PUSH (16:40)
[2023-10-19] MEDS: MIDAZOLAM HCL (*CRX) 2 MG/2 ML VIAL IV PUSH (16:45)
[2023-10-19] MEDS: LACTATED RINGERS 1,000 ML 100 ML IV CONT (18:45)
[2023-10-19] MEDS: hydrALAZINE HCL 20 MG/ML VIAL 10 MG IV PUSH (19:53)
[2023-10-19] MEDS: oxyCODONE HCL (*CRX) 5 MG TAB IR PO (22:37)
[2023-10-20 01:01] VITALS: BP 147/94; PULSE 89; RESP 14; TEMP 36.8; O2SAT 96
[2023-10-20] MEDS: MORPHINE SULFATE (*CRX) 4 MG/ML INJ IV PUSH ×2 (02:00→07:53)
[2023-10-20 04:55] VITALS: BP 143/97; PULSE 82; RESP 16; TEMP 36.8; O2SAT 98
[2023-10-20 04:56] LABS: Hematocrit 46.4 % (42.0-52.0); Hemoglobin 16.3 g/dL (14.0-18.0); Mean Corpuscular HGB Conc 35.1 g/dl (32-36); Mean Corpuscular Hemoglobin 31.1 pg (26-34); Mean Corpuscular Volume 88.5 fl (80-100); Mean Platelet Volume 9.3 fl (7.4-10.4); Platelet Count Result 252 k/mm3 (150-375); Red Blood Count 5.24 M/mm3 (4.6-6.20)
[2023-10-20 05:13] LABS: Alanine Aminotransferase 96 U/L (6-50); Albumin Level 4.2 g/dL (3.5-5.1); Alkaline Phosphatase 63 U/L (38-126); Anion Gap 12 mmol/L (8-16); Aspartate Amino Transferase 60 U/L (17-59); Bilirubin,Total 0.9 mg/dL (0.2-1.3); Blood Urea Nitrogen 7 mg/dL (9-20); Carbon Dioxide 22 mmol/L (22-30); Chloride 104 mmol/L (98-107); Cholesterol 128 mg/dL (0-200); Estimated CRCL calculation 169 ml/min; Estimated Glomerular Filt Rate > 60; Glucose 111 mg/dL (65-110); HDL Direct 61 mg/dL; Potassium 3.6 mmol/L (3.4-5.0); Sodium 138 mmol/L (137-145); Triglycerides 48 mg/dL (<150)
[2023-10-20 05:22] LABS: LDL Cholesterol Direct 49 mg/dL
[2023-10-20] MEDS: oxyCODONE HCL (*CRX) 5 MG TAB IR PO ×4 (06:40→19:55)
[2023-10-20 07:51] VITALS: BP 162/100; PULSE 80; RESP 16; TEMP 36.6; O2SAT 95
--- NOTE | 2023-10-20 08:16 | WPDANESPN ---
Anes - Prog Note Post-Op Date/Time: 10/20/23 08:16 Cardiovascular status: normal Respiratory status: normal Airway patency: baseline Mental status: baseline Post-Op hydration status: normal Vital Signs: Last Vital Signs Temp 36.6 C 10/20/23 07:51 Pulse 80 10/20/23 07:51 Resp 16 10/20/23 07:51 BP 162/100 H 10/20/23 07:51 Pulse Ox 95 10/20/23 07:51 O2 Del Method Room Air 10/19/23 20:00 O2 Flow Rate 8 10/19/23 17:15 Pain Score (VAS): 11/25 I/O: Intake & Output 10/19/23 10/20/23 10/20/23 23:59 07:59 15:59 Intake Total 500 300 Output Total 800 Balance -300 300 Laboratory Tests 10/20/23 04:29 10/20/23 04:29 10/20/23 04:29 WBC 15.0 H RBC 5.24 Hgb 16.3 Hct 46.4 MCV 88.5 MCH 31.1 MCHC 35.1 RDW 13.0 Plt Count 252 MPV 9.3 Sodium 138 Potassium 3.6 Chloride 104 Carbon Dioxide 22 Anion Gap 12 BUN 7 L D Creatinine 0.60 L Estim Creat Clear Calc 169 Estimated GFR > 60 Glucose 111 H Calcium 9.0 Total Bilirubin 0.9 AST 60 H ALT 96 H Alkaline Phosphatase 63 Total Protein 7.0 Albumin 4.2 Triglycerides 48 Cholesterol 128 LDL Cholesterol Direct 49 HDL Direct 61 Post-procedural complaints: none Patient Feedback: Patient satisfied with anesthetic care.
--- NOTE | 2023-10-20 11:22 | PM.PNGS ---
Progress Note: A&P Assessment and Plan (1) Acute calculous cholecystitis: Code(s): K80.00 - Calculus of gallbladder with acute cholecystitis without obstruction Status: Acute Assessment and Plan: Doing well. OK to discharge from surgical standpoint. Instructions discussed with patient. F/U in 2 weeks. Subjective Subjective Date/Time Seen: 10/20/23 11:22 Interval history: Doing well on POD#1. Tolerating diet. Pain controlled. Exam GI: Inspection: non-distended and incision (intact with glue) GI Palp: Yes Soft to palpation, Yes Tenderness to palpation present (GI) (incisional) and No Guarding due to palpation present (GI) Objective Data Vital Signs Vital Signs: Vital Signs - 24 hr 10/19/23 14:05 10/19/23 14:44 10/19/23 16:33 Temperature 36.6 C 37.2 C 37.6 C H Pulse Rate 74 69 73 Respiratory Rate 14 16 15 Blood Pressure 150/100 H 151/98 H 178/98 H Pulse Oximetry 100 99 100 Oxygen Delivery Room Air Simple Face Mask Oxygen Flow Rate 8 10/19/23 16:45 10/19/23 17:00 10/19/23 17:15 Temperature Pulse Rate 84 84 75 Respiratory Rate 16 20 20 Blood Pressure 138/85 132/86 140/88 Pulse Oximetry 98 98 99 Oxygen Delivery Simple Face Mask Simple Face Mask Simple Face Mask Oxygen Flow Rate 8 8 8 10/19/23 17:30 10/19/23 17:45 10/19/23 18:00 Temperature Pulse Rate 84 87 73 Respiratory Rate 18 18 18 Blood Pressure 151/97 H 158/98 H 154/100 H Pulse Oximetry 98 99 96 Oxygen Delivery Room Air Room Air Room Air Oxygen Flow Rate 10/19/23 18:15 10/19/23 18:45 10/19/23 20:00 Temperature 36.6 C Pulse Rate 92 70 Respiratory Rate 18 20 Blood Pressure 150/90 H 157/114 H Pulse Oximetry 97 99 Oxygen Delivery Room Air Room Air Oxygen Flow Rate 10/19/23 20:59 10/19/23 22:06 10/20/23 01:01 Temperature 36.8 C 36.8 C 36.8 C Pulse Rate 88 84 89 Respiratory Rate 16 16 14 Blood Pressure 148/98 H 142/93 H 147/94 H Pulse Oximetry 98 99 96 Oxygen Delivery Oxygen Flow Rate 10/20/23 04:55 10/20/23 07:51 10/20/23 08:00 Temperature 36.8 C 36.6 C Pulse Rate 82 80 Respiratory Rate 16 16 Blood Pressure 143/97 H 162/100 H Pulse Oximetry 98 95 Oxygen Delivery Room Air Oxygen Flow Rate Intake/Output Intake/Output: Intake & Output 10/17/23 10/18/23 10/19/23 10/20/23 23:59 23:59 23:59 23:59 Intake Total 1550 650 Output Total 800 Balance 750 650 Meds/Results Medications: Active Medications Generic Name Dose Route Start Last Admin Trade Name Freq PRN Reason Stop Dose Admin Acetaminophen 1,000 mg 10/19/23 18:21 Acetaminophen 500 Mg Tablet PO Q6H PRN Mild Pain (1-3) or Fever Morphine Sulfate 2 mg 10/19/23 18:21 Morphine Sulfate (*Crx) 2 Mg/Ml Inj IV PUSH Q2H PRN Pain Rated 4-6 Morphine Sulfate 4 mg 10/19/23 18:21 10/20/23 07:53 Morphine Sulfate (*Crx) 4 Mg/Ml Inj IV PUSH 4 mg Q2H PRN Administration Pain Rated 7-10 Ondansetron HCl 4 mg 10/19/23 18:21 Ondansetron Inj 4 Mg/2 Ml Vial IV PUSH Q4H PRN Nausea And Vomiting Oxycodone HCl 5 mg 10/19/23 18:21 10/20/23 11:08 Oxycodone Hcl (*Crx) 5 Mg Tab Ir PO 5 mg Q4H PRN Administration Pain Rated 7-10 Oxycodone HCl 2.5 mg 10/19/23 18:21 Oxycodone Hcl (*Crx) 2.5 Mg Tab Ir PO Q4H PRN Pain Rated 4-6 Radiology Results: ITS Impressions Chest X-Ray 10/18/23 22:15 IMPRESSION: 1. No acute cardiopulmonary disease. Abdomen/Pelvis CT 10/19/23 05:33 Impression: No significant abnormalities seen. Abdomen Ultrasound 10/19/23 11:23 IMPRESSION: 1. Normal right upper quadrant ultrasound. Hepatobiliary Scan Nuclear Medicine 10/19/23 12:51 IMPRESSION: 1. No evident accumulation of gallbladder activity either during the initial hour of imaging or in the calf or following morphine administration. This would be consistent with cystic duct obstruction and acute cholecystitis.
[2023-10-20 14:57] VITALS: BP 167/116; PULSE 82; RESP 22; TEMP 36.3; O2SAT 97
--- NOTE | 2023-10-20 15:09 | PM.IMPN ---
Progress Note: A&P Assessment and Plan (1) Abdominal pain, right upper quadrant: Code(s): R10.11 - Right upper quadrant pain Status: Acute Assessment and Plan: CT of the abdomen pelvis showing normal appearing gallbladder. Right upper quadrant ultrasound and HIDA. HIDA scan showing acute cholecystitis. Postop day 1 acute cholecystectomy Analgesics as needed. Advance diet as tolerated. better pain control (2) Steatosis, liver: Code(s): K76.0 - Fatty (change of) liver, not elsewhere classified Status: Acute Assessment and Plan: Noted on CT scan. Encourage lifestyle modifications. (3) Obesity (BMI 30-39.9): Code(s): E66.9 - Obesity, unspecified Status: Inactive Assessment and Plan: Encouraged lifestyle modifications. (4) Marijuana smoker: Code(s): F12.90 - Cannabis use, unspecified, uncomplicated Status: Inactive Assessment and Plan: Encouraged cessation. Subjective Date/time seen: 10/20/23 15:09 Interval history: Patient pain is still pretty high. Discussed better pain control with him. Once patient is better pain control he can be discharged. He still has abdominal pain. He is urinating him bowel movements and tolerating his diet. Exam Narrative: GENERAL: Comfortable, no acute distress HENMT: moist mucous membranes EYES: EOM intact b/l NECK: no lymphadenopathy RESPIRATORY: clear to auscultation CARDIO: RRR GI: soft, Positive Hodgson sign, bowel sounds present SKIN: no rashes EXTREMITIES: no edema, redness or tenderness Objective Data Vital Signs Vital Signs: Vital Signs - 24 hr 10/19/23 16:33 10/19/23 16:45 10/19/23 17:00 Temperature 99.7 F H Pulse Rate 73 84 84 Respiratory Rate 15 16 20 Blood Pressure 178/98 H 138/85 132/86 Pulse Oximetry 100 98 98 Oxygen Delivery Simple Face Mask Simple Face Mask Simple Face Mask Oxygen Flow Rate 8 8 8 10/19/23 17:15 10/19/23 17:30 10/19/23 17:45 Temperature Pulse Rate 75 84 87 Respiratory Rate 20 18 18 Blood Pressure 140/88 151/97 H 158/98 H Pulse Oximetry 99 98 99 Oxygen Delivery Simple Face Mask Room Air Room Air Oxygen Flow Rate 8 10/19/23 18:00 10/19/23 18:15 10/19/23 18:45 Temperature 98 F Pulse Rate 73 92 70 Respiratory Rate 18 18 20 Blood Pressure 154/100 H 150/90 H 157/114 H Pulse Oximetry 96 97 99 Oxygen Delivery Room Air Room Air Oxygen Flow Rate 10/19/23 20:00 10/19/23 20:59 10/19/23 22:06 Temperature 98.2 F 98.2 F Pulse Rate 88 84 Respiratory Rate 16 16 Blood Pressure 148/98 H 142/93 H Pulse Oximetry 98 99 Oxygen Delivery Room Air Oxygen Flow Rate 10/20/23 01:01 10/20/23 04:55 10/20/23 07:51 Temperature 98.3 F 98.2 F 97.9 F Pulse Rate 89 82 80 Respiratory Rate 14 16 16 Blood Pressure 147/94 H 143/97 H 162/100 H Pulse Oximetry 96 98 95 Oxygen Delivery Oxygen Flow Rate 10/20/23 08:00 10/20/23 14:57 Temperature 97.3 F L Pulse Rate 82 Respiratory Rate 22 H Blood Pressure 167/116 H Pulse Oximetry 97 Oxygen Delivery Room Air Oxygen Flow Rate Intake/Output Intake/Output: Intake & Output 10/17/23 10/18/23 10/19/23 10/20/23 23:59 23:59 23:59 23:59 Intake Total 1550 650 Output Total 800 Balance 750 650 Meds/Results Medications: Active Medications Generic Name Dose Route Start Last Admin Trade Name Freq PRN Reason Stop Dose Admin Acetaminophen 1,000 mg 10/19/23 18:21 Acetaminophen 500 Mg Tablet PO Q6H PRN Mild Pain (1-3) or Fever Morphine Sulfate 2 mg 10/19/23 18:21 Morphine Sulfate (*Crx) 2 Mg/Ml Inj IV PUSH Q2H PRN Pain Rated 4-6 Morphine Sulfate 4 mg 10/19/23 18:21 10/20/23 07:53 Morphine Sulfate (*Crx) 4 Mg/Ml Inj IV PUSH 4 mg Q2H PRN Administration Pain Rated 7-10 Ondansetron HCl 4 mg 10/19/23 18:21 Ondansetron Inj 4 Mg/2 Ml Vial IV PUSH Q4H PRN Nausea And
[2023-10-20 18:08] VITALS: BP 177/111; PULSE 96; RESP 16; TEMP 36.4; O2SAT 99
[2023-10-20 20:06] VITALS: BP 162/100; PULSE 83; RESP 16; TEMP 37.2; O2SAT 97
[2023-10-21] MEDS: oxyCODONE HCL (*CRX) 5 MG TAB IR PO (02:36)
[2023-10-21 03:00] VITALS: BP 160/115; PULSE 75; RESP 18; TEMP 36.8; O2SAT 98
[2023-10-21 05:58] LABS: Alanine Aminotransferase 79 U/L (6-50); Albumin Level 4.3 g/dL (3.5-5.1); Alkaline Phosphatase 65 U/L (38-126); Anion Gap 10 mmol/L (8-16); Aspartate Amino Transferase 38 U/L (17-59); Bilirubin,Total 0.8 mg/dL (0.2-1.3); Blood Urea Nitrogen 12 mg/dL (9-20); Calcium 9.1 mg/dL (8.4-10.2); Carbon Dioxide 24 mmol/L (22-30); Chloride 104 mmol/L (98-107); Estimated CRCL calculation 130 ml/min; Estimated Glomerular Filt Rate > 60; Glucose 99 mg/dL (65-110); Potassium 3.4 mmol/L (3.4-5.0); Sodium 138 mmol/L (137-145)
[2023-10-21 05:59] LABS: Basophils Absolute Auto 0.1 K/mm3 (0.0-0.1); Basophils Percent Auto 0.4 % (0.2-1.2); Eosinophils Absolute Auto 0.1 K/mm3 (0-0.3); Eosinophils Percent Auto 0.8 % (0-4.4); Hematocrit 48.6 % (42.0-52.0); Hemoglobin 16.4 g/dL (14.0-18.0); Immature Granulocyte Absolute 0.03 K/mm3 (0.00-0.031); Immature Granulocyte Percent A 0.3 % (0-0.5); Lymphocytes Absolute Auto 2.41 K/mm3 (0.9-3.2); Lymphocytes Percent Auto 20.4 % (18.3-44.2); Mean Corpuscular HGB Conc 33.7 g/dl (32-36); Mean Corpuscular Hemoglobin 30.8 pg (26-34); Mean Corpuscular Volume 91.2 fl (80-100); Mean Platelet Volume 9.3 fl (7.4-10.4); Monocytes Absolute Auto 1.1 K/mm3 (0.1-0.6); Neutrophils Absolute Auto 8.2 K/mm3 (1.3-6.7); Neutrophils Percent Auto 69.1 % (45.5-73.1); Platelet Count Result 256 k/mm3 (150-375); Red Blood Count 5.33 M/mm3 (4.6-6.20); Red Cell Distribution Width 13.2 % (11.5-14.5); White Blood Count 11.8 K/mm3 (4.5-10.0)
--- NOTE | 2023-10-21 08:56 | PM.DS ---
DS: Admitting Diagnosis Discharge Date 10/21/23 Admitting Diagnosis Acute cholecystitis DS: Discharge Diagnosis Discharge Diagnosis (1) Abdominal pain, right upper quadrant: Code(s): R10.11 - Right upper quadrant pain Status: Acute (2) Steatosis, liver: Code(s): K76.0 - Fatty (change of) liver, not elsewhere classified Status: Acute (3) Obesity (BMI 30-39.9): Code(s): E66.9 - Obesity, unspecified Status: Inactive (4) Marijuana smoker: Code(s): F12.90 - Cannabis use, unspecified, uncomplicated Status: Inactive DS: Summary Hospital Course Hospital Course: This is a 28-year-old male with a? insignificant past medical history that presented to the ED on 10/18/23 due to acute abdominal pain.? Patient's pain was in the right upper quadrant and radiated to his back.? Patient states that he had been seeing the hospital in 2021 and was told he had gallstones but did not undergo surgery at that time.? This feels like similar pain to him.? He had a subjective fever and nausea but no vomiting.? Patient is a daily drinker of at least 4 beers a day as well as a daily vape and marijuana user.? He also? consumes caffeine daily. ? He is found have a white blood cell count of 10.3,? LFTs within normal range and normal lipase.? CT of the abdomen pelvis was unremarkable.? right upper quadrant ultrasound did not reveal any findings of acute cholecystitis. HIDA scan done and acute cholecystitis was seen. Patient underwent a cholecystectomy on 10/20/2023. Patient did require IV pain medication for approximately 1 day. He had better pain control the following and was able to discharge. He tolerated diet and was moving his bowels. He is advised to follow-up with General surgery. Patient medically cleared for discharge at this time. Time Spent with Patient Time attestation: Total time spent providing and/or coordinating discharge services: Exam Narrative: GENERAL: Comfortable, no acute distress HENMT: moist mucous membranes EYES: EOM intact b/l NECK: no lymphadenopathy RESPIRATORY: clear to auscultation CARDIO: RRR GI: soft, Well-healing incision cross, bowel sounds present, slight tenderness SKIN: no rashes EXTREMITIES: no edema, redness or tenderness DS: Data Data Completed and Pending Pending studies at discharge: Pending at discharge 10/19/23 16:24 Surgical [PTH] Routine Labs on day of discharge: Labs from last 24 hours 10/21/23 05:16 WBC 11.8 H RBC 5.33 Hgb 16.4 Hct 48.6 MCV 91.2 MCH 30.8 MCHC 33.7 RDW 13.2 Plt Count 256 MPV 9.3 Immature Gran % (Auto) 0.3 Neut % (Auto) 69.1 Lymph % (Auto) 20.4 [place] % (Auto) 9.0 H Eos % (Auto) 0.8 Baso % (Auto) 0.4 Lymph # (Auto) 2.41 [place] # (Auto) 1.1 H Eos # (Auto) 0.1 Baso # (Auto) 0.1 Abs Immat Gran (auto) 0.03 Absolute Neuts (auto) 8.2 H Absolute Nucleated RBC 0.0 Nucleated RBC % 0.0 Sodium 138 Potassium 3.4 Chloride 104 Carbon Dioxide 24 Anion Gap 10 BUN 12 D Creatinine 0.80 Estim Creat Clear Calc 130 Estimated GFR > 60 Glucose 99 Calcium 9.1 Total Bilirubin 0.8 AST 38 ALT 79 H Alkaline Phosphatase 65 Total Protein 8.0 Albumin 4.3 Discharge Plan Discharge Attending physician on discharge: Nohelia Jc Consulting providers: Jcarlos Sanders; Reji Lopes Discharging Clinician: Maira Anthony Patient Disposition: Home, Self-Care Activity: other - see discharge instructions Diet: low fat Wound Care Instructions: other - see discharge instructions Discharge Instructions: DISCHARGE INSTRUCTION SHEET FOR HERNIA, GALLBLADDER AND APPENDIX SURGERIES DR. LOPES PATIENT TO TAKE HOME 1. May shower in 24 hours, no soaking in bath x 2weeks. 2. Call office for: Wound increasingly painful or bleeding Vomiting Fever of greater than 101 degrees 3. If no bowel movement for three days, take 1 oz. (30 ml) Milk of [place]
== END 2023-10-21 09:15 | disposition home or self-care (01) ==
LOC: ANHED 10-19 04:30 → ANH2MED 10-19 05:39
PROVIDERS: Internal Medicine Critical Care Medicine; Surgery; Admitting Provider Family Medicine; Emergency Provider Student in an Organized Health Care Education/Training Program; Visit Provider Family Medicine
PROC: 0FT44ZZ Resection of Gallbladder, Percutaneous Endoscopic Approach (ICD-10-PCS; CPT 47562; principal; 2023-10-19 15:00)
DX: K80.12 Calculus of gallbladder with acute and chronic cholecystitis without obstruction (principal); K76.0 Fatty (change of) liver, not elsewhere classified; E66.9 Obesity, unspecified; Z68.35 Body mass index [BMI] 35.0-35.9, adult; M62.838 Other muscle spasm; F17.290 Nicotine dependence, other tobacco product, uncomplicated; F10.90 Alcohol use, unspecified, uncomplicated; F12.90 Cannabis use, unspecified, uncomplicated; Z79.891 Long term (current) use of opiate analgesic; Z79.899 Other long term (current) drug therapy
CPT/HCPCS: 47562; 36415; 71046; 74177; 76705; 78227; 80053; 80061; 83690; 84484; 85025; 85027; 85610; 85730; 88304; 93005; 96361; 96374; 96375; 96376; 99285; A9270; A9537; G0378; J0330; J0360; J0690; J1100; J1596; J1885; J2250; J2270; J2405; J2704; J2710; J3010; J7030; J7120; Q9967